=== PATIENT | male | born 1985 | race Caucasian/White ===

== ENCOUNTER 2020-01-20 13:44 | Emergency (ER) | payer SELFPAY ==
[2020-01-20 13:50] VITALS: BP 137/72; PULSE 64; RESP 14; TEMP 36.9; O2SAT 98
--- NOTE | 2020-01-20 14:25 | ED.BACK ---
HPI - Back Pain/Injury General Chief Complaint: Back Pain/Injury Stated Complaint: upper back pain Time Seen by Provider: 01/20/20 14:21 Source: patient and RN notes reviewed Mode of arrival: ambulatory Limitations: no limitations History of Present Illness HPI Narrative: Patient presents today requesting a note for work. 5 days ago at work, patient was lifting heavy dishes out of a dumb acid cutter and strained his right upper back. Since that time, patient's symptoms have completely resolved. He is currently pain-free. He never took any medication for symptoms prior to arrival. Denies numbness or tingling in the extremities. No pain with range of motion or movement of the neck. His work is requiring a note stating he was evaluated before he can return to work. MD elicited complaint: back pain Related Data Home Medications Medication Instructions Recorded Confirmed No Home Medications 01/20/20 01/20/20 Allergies Allergy/AdvReac Type Severity Reaction Status Date / Time No Known Allergies Allergy Verified 01/20/20 14:03 Review of Systems Review of Systems: Narrative: CONSTITUTIONAL: Denies body aches, fever, chills, or sweats. EYES: Denies visual changes, redness, or discharge. ENT: Denies rhinorrhea, congestion, sore throat, or otalgia. CARDIOVASCULAR: Denies chest pain, palpitations, or edema. RESPIRATORY: Denies cough or dyspnea. GASTROINTESTINAL: Denies abdominal pain, nausea, vomiting, or diarrhea. GENITOURINARY: Denies dysuria or hematuria. SKIN: Denies rash, itching, or wounds. MUSCULOSKELETAL: Denies joint pain, or myalgia. + Back pain?resolved NEUROLOGIC: Denies headache, numbness, tingling, or weakness. PSYCH: Denies depression or anxiety. PMFSH Comments At time of signature, I have reviewed and agree with nursing past medical, surgical, social and family history unless otherwise noted. Please see nursing chart for further information. There is no relevant family history pertinent to the presenting complaint Exam Narrative: Exam Narrative: GENERAL: Well-appearing, well-nourished, and in no acute distress. HEAD: Normocephalic, atraumatic. EYES: EOMI. No redness or drainage. Conjunctivae normal. ENT: Mucous membranes pink and moist. NECK: Normal AROM. Neck is nontender. CHEST: No respiratory distress. MUSCULOSKELETAL: Patient localizes prior pain at the right trapezius. It is currently nontender. Full AROM of the shoulder without pain. Full strenght in arms. Distal sensation intact. Capillary refill normal. Radial pulse normal. EXTREMITIES: Normal range of motion. No edema. SKIN: Warm, dry, no rash. Capillary refill normal. Normal skin turgor. NEURO: No focal deficits. Alert and oriented x3. Gait steady. PSYCH: Normal affect. No signs of depression or anxiety. Course Vital Signs Vital signs: Vital Signs Temperature 98.4 F 01/20/20 13:50 Pulse Rate 64 01/20/20 13:50 Respiratory Rate 14 01/20/20 13:50 Blood Pressure 137/72 01/20/20 13:50 Pulse Oximetry 98 01/20/20 13:50 Temperature 98.4 F 01/20/20 13:50 Pulse Rate 64 01/20/20 13:50 Respiratory Rate 14 01/20/20 13:50 Blood Pressure 137/72 01/20/20 13:50 Pulse Oximetry 98 01/20/20 13:50 Reviewed. Pt has been instructed to follow up with his PCP regarding his elevated blood pressure today. MDM - Back Pain/Injury Differential Diagnosis Differential diagnosis: Likely other (Thoracic strain, trapezius strain, bulging disc, muscle spasm) Critical Care Time Critical Care Time Critical Care Time: No Discharge Plan Discharge Clinical Impression: Strain of right trapezius muscle Qualifiers: Encounter type: initial encounter Qualified Code(s): S46.811A - Strain of other muscles, fascia and tendons at shoulder and upper arm level, right arm, initial encounter Patient Disposition: Home, Self-Care Condition: Stable Instructions: Thoracic Back Strain (ED) Additional Instructions: You have
== END 2020-01-20 14:32 | disposition home or self-care (01) ==
PROVIDERS: Emergency Provider Nurse Practitioner
DX: S46.811A Strain of other muscles, fascia and tendons at shoulder and upper arm level, right arm, initial encounter (principal); X50.0XXA Overexertion from strenuous movement or load, initial encounter
CPT/HCPCS: 99212; G0463